=== PATIENT | female | born 1990 | race American Indian/Alaskan Native ===

== ENCOUNTER 2017-03-06 21:42 | Emergency (ER) | payer SELFPAY ==
[2017-03-06 23:08] VITALS: BP 119/69
[2017-03-07] MEDS ORDERED: TYLENOL ONE (01:32)
[2017-03-07] MEDS ORDERED: TYLENOL PO ONE (01:33)
== END 2017-03-07 04:39 | disposition left against medical advice (07) ==
LOC: ED 21:42
DX: K08.89 Other specified disorders of teeth and supporting structures (principal); R51 Headache; Z53.21 Procedure and treatment not carried out due to patient leaving prior to being seen by health care provider

== ENCOUNTER 2021-07-19 13:18 | Emergency (ER) | payer SELFPAY ==
--- NOTE | 2021-07-19 14:59 | Emergency Department Report ---
ED ENT HPI - General Chief complaint: Dental/Oral Stated complaint: SWOLLEN FACE/FACIAL PAIN/TOOTHACHE Time Seen by Provider: 07/19/21 14:34 Source: patient Mode of arrival: Ambulatory Limitations: No Limitations - History of Present Illness Initial comments: Patient is a 31-year-old female presents emergency room with complaints of right upper dental pain that began a few days ago. She has associated right upper facial swelling. patient states that she had the same symptoms 6 months ago and completed a course of antibiotics but never followed up with a dentist. She denies any fever, vomiting, chills, difficulty swallowing, difficulty breathing. No past medical history. No allergies medications. - Related Data Previous Rx's Medication Instructions Recorded Last Taken Type Chlorhexidine Mouthwash [Peridex] 15 ml MM BID #1 bottle 07/19/21 Unknown Rx Clindamycin [Clindamycin CAP] 300 mg PO TID 7 Days #21 cap 07/19/21 Unknown Rx Naproxen 375 mg PO BID PRN #14 tablet 07/19/21 Unknown Rx Allergies Allergy/AdvReac Type Severity Reaction Status Date / Time No Known Allergies Allergy Unverified 07/19/21 14:29 ED Dental HPI - General Chief complaint: Dental/Oral Stated complaint: SWOLLEN FACE/FACIAL PAIN/TOOTHACHE Time Seen by Provider: 07/19/21 14:34 Source: patient Mode of arrival: Ambulatory Limitations: No Limitations - Related Data Previous Rx's Medication Instructions Recorded Last Taken Type Chlorhexidine Mouthwash [Peridex] 15 ml MM BID #1 bottle 07/19/21 Unknown Rx Clindamycin [Clindamycin CAP] 300 mg PO TID 7 Days #21 cap 07/19/21 Unknown Rx Naproxen 375 mg PO BID PRN #14 tablet 07/19/21 Unknown Rx Allergies Allergy/AdvReac Type Severity Reaction Status Date / Time No Known Allergies Allergy Unverified 07/19/21 14:29 ED Review of Systems ROS: Stated complaint: SWOLLEN FACE/FACIAL PAIN/TOOTHACHE Other details as noted in HPI Comment: All other systems reviewed and negative ED Past Medical Hx - Social History Smoking Status: Current Every Day Smoker Substance Use Type: None - Medications Home Medications: Home Medications Medication Instructions Recorded Confirmed Last Taken Type Chlorhexidine Mouthwash [Peridex] 15 ml MM BID #1 bottle 07/19/21 Unknown Rx Clindamycin [Clindamycin CAP] 300 mg PO TID 7 Days #21 cap 07/19/21 Unknown Rx Naproxen 375 mg PO BID PRN #14 tablet 07/19/21 Unknown Rx ED Physical Exam - General Limitations: No Limitations General appearance: alert, in no apparent distress - ENT ENT exam: Present: mucous membranes moist, other (mostly missing tooth with dental caries/decay to the right upper molar, mild right facial edema, no trismus, no tongue elevation, no muffled voice, no submandibular edema, uvula is midline, no uvular edema or deviation) - Respiratory Respiratory exam: Present: normal lung sounds bilaterally. Absent: respiratory distress, wheezes, rales, rhonchi, stridor, chest wall tenderness, accessory muscle use, decreased breath sounds, prolonged expiratory - Cardiovascular Cardiovascular Exam: Present: regular rate, normal rhythm, normal heart sounds. Absent: systolic murmur, diastolic murmur, rubs, gallop - Neurological Exam Neurological exam: Present: alert, oriented X3 - Psychiatric Psychiatric exam: Present: normal affect, normal mood - Skin Skin exam: Present: warm, dry, intact ED Course Vital Signs 07/19/21 07/19/21 14:27 15:53 Temperature 98.4 F Pulse Rate 77 78 Respiratory 16 14 Rate Blood Pressure 120/90 128/80 [Left] O2 Sat by Pulse 97 98 Oximetry ED Medical Decision Making - Medical Decision Making Patient is a 31-year-old female presents emergency room with complaints of right upper dental pain that began a few days ago. She has associated right upper facial swelling. patient states that she had the same symptoms 6 months ago and completed a course of antibiotics but never followed up with a dentist. She denies any fever, vomiting, chills, difficulty swallowing, difficulty breathing. No past medical history. No allergies medications. Vitals are normal. On exam: mostly missing tooth with dental caries/decay to the right upper molar, mild right facial edema, no trismus, no tongue elevation, no muffled voice, no submandibular edema, uvula is midline, no uvular edema or deviation. Examination appears consistent with dental abscess. No signs of facial cellulitis or Crow's at this time. Patient given prescription for medication. Advised patient Please take medication as prescribed. Follow-up with a dentist. It is very important that you follow-up. Return to emergency room for any new or worsening symptoms. Critical care attestation.: If time is entered above; I have spent that time in minutes in the direct care of this critically ill patient, excluding procedure time. ED Disposition Clinical Impression: Dental abscess, Dental caries, Dentalgia Disposition: 01 HOME / SELF CARE / HOMELESS Is pt being admited?: No Does the pt Need Aspirin: No Condition: Stable Instructions: Dental Abscess Additional Instructions: Please take medication as prescribed. Follow-up with a dentist. It is very important that you follow-up. Return to emergency room for any new or worsening symptoms. Prescriptions: Clindamycin [Clindamycin CAP] 300 mg PO TID 7 Days #21 cap Naproxen 375 mg PO BID PRN #14 tablet PRN Reason: pain Chlorhexidine Mouthwash [Peridex] 15 ml MM BID #1 bottle Referrals: a, dentist [Other] - 3-5 Days Time of Disposition: 14:58 Print Language: GREEK
[2021-07-19] MEDS ORDERED: IBUPROFEN 600 MG TAB PO ONE (15:39)
[2021-07-19 15:54] VITALS: BP 128/80
== END 2021-07-19 15:53 | disposition home or self-care (01) ==
LOC: ED 13:18
DX: K04.7 Periapical abscess without sinus (principal); K02.9 Dental caries, unspecified; F17.200 Nicotine dependence, unspecified, uncomplicated
CPT/HCPCS: 99282